=== PATIENT | female | born 1950 | race Caucasian/White ===

== ENCOUNTER → 2018-03-14 09:59 | Outpatient (CLI) | payer MEDICARE, SELFPAY ==
--- NOTE | 2018-03-14 10:06 | CDU_ITS ---
Reason For Study: dizziness and giddiness Rt. Velocities/BP Lt. Velocities/BP Prox CCA 66.8/25.5 cm/sec. Prox CCA 73.9/27.6 cm/sec. Mid CCA 61.7/24.0 cm/sec. Mid CCA 69.2/24.0 cm/sec. Dist CCA 67.6/26.7 cm/sec. Dist CCA 72.7/29.9 cm/sec. Prox ICA 69.5/29.5 cm/sec. Prox ICA 47.9/13.4 cm/sec. Mid ICA 85.0/39.9 cm/sec. Mid ICA 77.4/33.4 cm/sec. Dist ICA 78.3/35.4 cm/sec. Dist ICA 117.0/41.0 cm/sec. Rt. ICA/CCA = 85.0/61.7=1.3. Lt. ICA/CCA = 117.0/69.2=1.7. Prox ECA 54.2/14.5 cm/sec. Prox ECA 83.3/18.2 cm/sec. Rt. Vert. 41.2/12.2 cm/sec. Lt. Vert. 41.4/13.6 cm/sec. Right Extracranial There is intimal thickening but no significant atherosclerotic plaque noted in the right common carotid artery. There is intimal thickening but no significant atherosclerotic plaque noted in the right internal carotid artery. The right internal carotid artery is very tortuous. There is intimal thickening but no significant atherosclerotic plaque noted in the right external carotid artery. Left Extracranial There is intimal thickening but no significant atherosclerotic plaque noted in the left common carotid artery. There is intimal thickening but no significant atherosclerotic plaque noted in the left internal carotid artery. The tortuous nature of the left internal carotid artery may result in flow velocities overestimating the degree of stenosis. There is no significant atherosclerotic plaque noted in the left external carotid artery. Antegrade flow is noted in the left vertebral artery. Interpretation Summary No significant atherosclerotic plaque or stenosis noted in the internal carotid arteries bilaterally. Flow within the vertebral arteries is antegrade bilaterally. Ordering Physician: JOSSELIN GUARDADO Referring Physician: JOSSELIN GUARDADO FREE Performed By: Silvia Johnson, ZEN, RVT
== END ==
DX: R42 Dizziness and giddiness (principal)
CPT/HCPCS: 93880

== ENCOUNTER → 2018-03-21 18:11 | Outpatient (CLI) | payer MEDICARE, SELFPAY ==
--- NOTE | 2018-03-21 18:22 | CT_ITS ---
STUDY: LOW DOSE CT LUNG CANCER SCREENING REASON FOR EXAM: Female, 67 years old. Lung cancer screening. Smoker one half pack per day. RADIATION DOSAGE (If Supplied By Facility): CTDIvol = ( 2.01 ) mGy, DLP = ( 69.72 ) mGycm TECHNIQUE: No contrast was administered. Low dose technique was utilized (average mAS-38 and kVp 120). 1.25 mm axial source images with a slice interval of 1.25-mm were reconstructed in lung windows. Nodule measured using lung windows on PACS and/or independent workstation with automated measurement of minimum and maximum diameter. Nodule measurement reported as average diameter rounded to the nearest whole number. Growth is defined as an increase ins size of greater than 1.5 mm. COMPARISON: None. FINDINGS: Total lung nodules (excluding granulomas): A few scattered tiny subpleural noncalcified pulmonary nodules are present measuring less than 2 mm. This also likely represents sequela from old granulomatous disease but without calcification. There are no suspicious pulmonary nodules requiring follow-up. Small calcified pulmonary nodules are present consistent with old granulomatous disease. Emphysema: Centrilobular emphysema. Endobronchial lesion: None. Aorta: Nonaneurysmal ectasia of the ascending aorta and proximal arch 3.5 cm. Coronary arteries: Mild coronary calcifications are visible in the proximal LAD, none seen in the RCA (right dominant) or circumflex or left main. Heart: Unremarkable. Pulmonary artery: Nondilated. Mediastinal nodes: None. Other chest and abdominal findings: Supraclavicular and body wall soft tissues, and upper abdomen exhibit no acute process. There are calcified gallstones within contracted gallbladder without acute inflammatory features or biliary ductal dilatation. There is no mediastinal mass or lymphadenopathy. The esophagus appears normal. There is no acute osseous process. CT/Low Dose CT Lung Screening IMPRESSION: There is evidence of old granulomatous disease with a few tiny calcified pulmonary nodules. There are a few tiny subtle scattered noncalcified pulmonary nodules, less than 2 mm, not specifically requiring follow-up. Based on the ACR lung RADS classification, recommendation to continue annual low dose screening CT. Mild coronary atherosclerosis. No other acute cardiopulmonary process. IMPORTANT NOTES FOR USE: ACR Lung-RADS Version 1.0 Assessment Categories Release Date: January 08, 2014 Category: Coded 0-4 bases on nodule(s) with highest degree of suspicion. Negative screen is defined as categories 1 and 2; a positive screen is defined as categories 3 and 4. Category 3 and 4A nodules that are unchanged on interval CT should be coded as category 2, and individuals returned to screening in 12 months. Category 4X: Category 3 or 4 nodules with additional imaging findings that increase the suspicion of lung cancer, such as spiculation, GGN that doubles in size in 1 year, enlarged lymph notes, etc. Category Modifiers: S (significant finding unrelated to lung cancer) and C (prior history of treated lung cancer) may be added to the 0-4 Lung-RADS Electronically Signed: Julien Houston, at 9:19 EDT Tel , Service support ,
== END ==
DX: Z12.2 Encounter for screening for malignant neoplasm of respiratory organs (principal); R05 Cough; Z87.891 Personal history of nicotine dependence
CPT/HCPCS: G0297

== ENCOUNTER 2018-04-19 06:58 | Day surgery (SDC) | payer MEDICARE, SELFPAY ==
[2018-04-19] VITALS (7 sets, daily range): BP systolic 105–120; BP diastolic 58–67; PULSE 80–92; RESP 12–16; TEMP 36.4–37.2; O2SAT 100; BMI 18.0
--- NOTE | 2018-04-19 08:20 | PCM.OPRPT ---
Problem List (1) Screen for colon cancer Status: Acute Report of Operation Date of Procedure: 04/19/18 Pre-Operative Diagnosis: Screening colonoscopy Post-Operative Diagnosis: Normal colonoscopy Surgery/Procedure Performed:: Colonoscopy Description of Procedure: The major risks and benefits associated with the procedure were explained to the patient in detail. The patient verbalized understanding and agreement with the same. The patient was brought to the endoscopy suite. After adequate sedation was achieved, the patient was placed in the left lateral decubitus position and a digital rectal exam was performed. This examination was within normal limits. A well-lubricated colonoscope was then inserted into the rectum and advanced under direct visualization to the level of the cecum. The bowel prep was good. The cecum was identified by both visual and anatomic landmarks. A photograph was taken of the end of the cecum. The scope was then fully withdrawn while examining the color, texture, anatomy and integrity of the mucosa from the cecum to the anal canal. The findings were consistent with normal colonic mucosa. Over 6 minutes were taken to examine the colonic mucosa. Upon reaching the rectum the scope was retroflexed to examine the distal rectal vault. The scope was then straightened and was completely retrieved upon exiting the anal canal and the procedure was terminated. The patient was then transferred to the recovery room in stable condition. Recommendations for follow up: 10 years
--- NOTE | 2018-04-19 08:21 | H&P.OPEN ---
Past Medical/Surgical History - Planned Operation Planned Operative Procedure/s: COLONOSCOPY Date of Operative Procedure: 04/19/18 Permit Signed: No S.O.S: No Is This Patient Having a Total Joint: No - Previous Hospitalizations/Surgeries HX of Surgeries: INTESTINAL SURGERY AT AGE 14. CATARACT BILAT 2018 Any Problems With Anesthesia: No You/Your Family Experience Fever (Hyperthermia) With Anes: No Cholinesterase deficiency: No - Cardiovascular Hx Chest Pain within Last 2 months: No Hx of Irregular Heartbeat and/or Afib: No Hx Heart Attack: No Hx Congestive Heart Failure: No Hx Rheumatic Fever: No Hx Hypertension: No Hx Internal Defibrillator: No Hx Pacemaker: No Hx Cardiac Catheterization: No Hx Cardiac Surgery/Stents/Etc.: No Hx Stress Test: Yes - [place] 2014, STATES NEG HX Edema: No - Respiratory Chronic Cough: No HX of Shortness of Breath: Yes - SOB WITH 2 FLIGHTS STAIRS Hoarseness: No Hx Chronic Obstructive Pulmonary Disease (COPD): No Hx Asthma: No Hx Emphysema: No Hx Sleep Apnea: No Hx Oxygen Use at Home: No Hx Respiratory Tract Infection/Cold (presently): No Do You Snore Loudly (louder than talking or can be heard): No Do You Often Feel Tired/ Fatigued/ Sleepy Dring Daytime?: Yes Has Anyone Observed You Stop Breathing During Sleep?: No Result (for STOP score): Negative Hx Smoking: Yes - 1/2 PPD X 35+ Smoking Status: Current every day smoker - Gastrointestinal Hx Gastroesophageal Reflux: No Hx Gastrointestinal Disorders: No Hx Gastrointestinal Bleed: No Hx Ulcer: No Hx Hiatal Hernia: No Difficulty Chewing/Swallowing: No Recent Onset of Swallowing Problems: No Special diet followed at home: No Hx Unplanned Weight Loss of 20#: No HX Unplanned Weight Gain of 20#: No - Neurological Hx Seizures: Yes - PER HX TEEN HX Syncope/Blackout Spells/Unconsciousness: Yes - PER HX, DUE TO MED , SAW DR Hx CVA/Stroke: No Hx Transient Ischemic Attacks (TIA): No Hx Multiple Sclerosis: No Hx Parkinson's Disease: No Hx Head/Neck Injury: Yes - HEAD INJURY , CHILD Hx Headaches: Yes - MIGRAINES PER HX Hx Back Injury/Pain: Yes - LOW BACK PAIN OCCAS Recent Onset of Speech Difficulty: No Restless Legs: No Does patient have nerve stimulator: No Patient instructed to have device shut off: No Rep notified?: No - Blood Disorder Hx Leukemia: No Bleeding Tendencies: Yes - BRUISE EASILY Hx Deep Vein Thrombosis: No Hx High Cholesterol: Yes - NO MEDS Blood Transmitted Disease: No Hx Hepatitis: No Hx Cirrhosis: No Hx Anemia: No Hx Blood Disorders: No - Reproduction : No Is Patient Lactating: No Hx Hysterectomy: No Hx Tubal Ligation: No Are You Post Menopause: Yes - Genitourinary Hx Renal Disease: No - Musculoskeletal Hx Arthritis: No Hx Rheumatoid Arthritis: No Hx Gout: No Recent Onset of an Orthopedic Problem: No - Endocrine Hx Diabetes: No Thyroid Disease: No Hx Steroid Therapy: No - Psycho/Social Hx Substance Use: No Hx Alcohol Use: No Hx Anxiety: No Hx Depression: No Mental Illness: No Hx Dementia: No - Miscellaneous Hx Cancer: No Recent Exposure to Contagious Disease: No Active MRSA: No Hx of C-Diff: No Any Loose Teeth: Yes - NO TEETH Allergies No Known Allergies Allergy (Verified 04/18/18 08:34) - Discharge Is Pt Admitted From a Long Term, or a Retirement: No Who Could Help: SON After D/C, Where Do you Plan to Go: Return Home Patient Problems: Active and Suspected Problems Screen for colon cancer (Acute) - Physical Exam General: Alert, Oriented x3, Cooperative Neck: No JVD Lungs: Normal air movement Cardiovascular: Regular rate, Regular Rhythm Abdomen: Soft, Non Tender, Non-Distended Vital Signs Temp Pulse Resp BP Pulse Ox 98 F 92 16 119/58 L 100 04/19/18 07:21 04/19/18 07:21 04/19/18 07:21 04/19/18 07:21 04/19/18 07:21 Oxygen Delivery Method Room Air Weight: 108 lb 3.951 oz Body Mass Index (BMI) 18.0 Assessment/Plan All Active Problems Screen for colon cancer (Acute) 67-year-old for screening colonoscopy 1. Patient has never had a colonoscopy before. She has no family history of colon cancer. She describes no abdominal pain or blood in her stool. 2. I explained endoscopy in detail to the patient. I explained the risks including but not limited to stroke or heart attack with anesthesia, perforation of the GI tract, bleeding, infection. I explained that any of these could necessitate further emergency surgery. The patient understands and all questions were answered sufficiently. The patient wishes to proceed with procedure. Timmy Gale MD Pager: [facility] [address] [place] [address] [address] [place] [address] Office: Surgery Risks - Colonoscopy Risks Include but are not Limited To: Risks include but are not limited to: Bleeding, perforation requiring further surgery, inability to complete colonoscopy requiring barium enema.
== END 2018-04-19 09:00 | disposition home or self-care (01) ==
LOC: EN 06:59 → AC 07:00
PROVIDERS: Visit Provider Surgery
PROC: 0DJD8ZZ Inspection of Lower Intestinal Tract, Via Natural or Artificial Opening Endoscopic (ICD-10-PCS; CPT 45378; principal; 2018-04-19 07:55)
DX: Z12.11 Encounter for screening for malignant neoplasm of colon (principal); E78.00 Pure hypercholesterolemia, unspecified; R56.9 Unspecified convulsions; G43.909 Migraine, unspecified, not intractable, without status migrainosus; F17.200 Nicotine dependence, unspecified, uncomplicated; Z78.0 Asymptomatic menopausal state; Z79.899 Other long term (current) drug therapy
CPT/HCPCS: G0121; J7120

== ENCOUNTER → 2018-06-22 10:29 | Outpatient (CLI) | payer MEDICARE, MEDICAID, SELFPAY ==
--- NOTE | 2018-06-22 10:41 | BD_ITS ---
STUDY: DUAL ENERGY X-RAY ABSORPTIOMETRY / DXA REASON FOR EXAM: Female, 67 years old. The patient is postmenopausal. Loss of height. TECHNIQUE: Bone Mineral Density (BMD) measurements of lumbar spine and bilateral hips were obtained. COMPARISON: None. FINDINGS: Lumbar Spine (L1-L4): g/cm2 (0.940) / T-score (-1.9) / Z-score (-0.3) Findings are suggestive of osteopenia with a moderate fracture risk. Left Femur Total: g/cm2 (0.709) / T-score (-2.4) / Z-score (-1.1) Left Femoral Neck: g/cm2 (0.685) / T-score (-2.5) / Z-score (-1.0) Right Femur Total: g/cm2 (0.682) / T-score (-2.6) / Z-score (-1.4) Right Femoral Neck: g/cm2 (0.614) / T-score (-3.1) / Z-score (-1.6) BD/Dexa Bone Density Study IMPRESSION: The patient is considered osteoporotic as outlined below according to World Haile Organization (WHO) criteria with a high fracture risk. Reference Information: The T-score is the number of standard deviations above or below the standard which is normal for young adults at their peak bone mineral density. The World Health Organization (WHO) interprets the T-scores as follows: Above -1 Normal bone density Between -1 and -2.5 Osteopenia Equal to / or below -2.5 Osteoporosis As a practical clinical guideline, osteopenia may be graded as follows: Mild -1 through -1.5 Moderate -1.6 through -2.0 Severe -2.1 through -2.4 The Z-score is the number of standard deviations above or below age-matched controls. A Z-score of less than -1.5 would be considered abnormal. References: 1. NIH Osteoporosis and Related Bone Diseases http://www.osteo.org 2. International Society for Clinical Densitometry http://www.iscd.org 3. National Osteoporosis Foundation http://www.nof.org Electronically Signed: Osmany Lemos MD at 15:52 EDT Tel [phone], Service support ,
--- NOTE | 2018-06-22 10:43 | BI_ITS ---
MAMMOGRAPHY - BILATERAL SCREENING 3-D BETHANY SYNTHESIS REASON FOR EXAM: Female, 67 years old. Bilateral Screening 3-D tomosynthesis PERTINENT HISTORY: Asymptomatic. No significant family history. TECHNIQUE: 2-D mammograms and 3-D Bethany synthesis of the breast (s) were performed. CAD was performed. COMPARISON: None available. If prior mammogram becomes available, then they can be placed after comparison. FINDINGS: The breast composition is almost entirely fat. Numerous tiny variable size calcifications are seen in the left axilla with MLO view (electronically circled) only for which left true lateral, left XCC and if applicable XCC/MLO spot magnification views are recommended to exclude neoplasm with documentation of possible skin calcifications or possible deodorant. Right breast upper inner quadrant tiny round mass density is seen anterior to middle third junction, approximate 0.46 cm diameter (electronically circled) for which CC/MLO spot compression views are recommended. No dominant spiculated masses, architectural distortion, adenopathy, skin thickening or nipple retraction identified. IMPRESSION: Incomplete mammogram, additional imaging recommended as described (bilateral). ASSESSMENT CATEGORY: BIRADS Category 0: Incomplete. Need additional imaging evaluation as above. A letter regarding these results will be sent to the patient by the facility within 30 days. FOLLOW UP RECOMMENDATION: Additional imaging recommended as above. (E) Negative mammographic results should not deter biopsy as any palpable lesion if present should be followed based on clinical grounds and biopsy performed if clinically persistent for 3 months or increasing size. Approximately 10% of breast cancers are not detected by mammography. A normal mammogram should not delay biopsy of a clinically suspicious abnormality. Dense breast tissue may obscure neoplasm. Electronically Signed: Abdi Shelton, at 20:17 EDT Tel , Service support , BI/SCREENING MAMM (CAD)MAAME
== END ==
DX: Z12.31 Encounter for screening mammogram for malignant neoplasm of breast (principal); Z78.0 Asymptomatic menopausal state; M81.0 Age-related osteoporosis without current pathological fracture; Z87.311 Personal history of (healed) other pathological fracture
CPT/HCPCS: 77063; 77067; 77080

== ENCOUNTER → 2018-07-27 13:41 | Outpatient (CLI) | payer MEDICARE, MEDICAID, SELFPAY ==
--- NOTE | 2018-07-27 13:49 | BI_ITS ---
MAMMOGRAPHY - BILATERAL DIAGNOSTIC REASON FOR EXAM: Female, 67 years old. Abnormal screening mammogram. PERTINENT HISTORY: Non-contributory. TECHNIQUE: 90 degree lateral view of the left breast as well as compression spot views of the right breast in the craniocaudad and MLO projections were obtained. CAD: Full Field Digital Mammography with Computer Added Detection was performed. COMPARISON: Comparison is made with prior study dated June 22, 2018. FINDINGS: Breast Composition: The breasts are almost entirely fatty. There are no dominant masses or suspicious calcifications. The previously seen fine calcifications in the left axillary region is not seen at this time and most likely represented the origin. There is evidence of a 2 mm nodular density in the central portion of the right breast. This most like represents a tiny cyst. No other significant abnormalities are identified. BI/DIAG MAMM W/CAD, BILAT IMPRESSION: Stable bilateral diagnostic mammogram. One year follow-up recommended. (A) ASSESSMENT CATEGORY: BIRADS Category 2: Benign. A letter regarding these results will be sent to the patient by the facility within 30 days. Approximately 10% of breast cancers are not detected by mammography. A normal mammogram should not delay biopsy of a clinically suspicious abnormality. Electronically Signed: Osmany Lemos MD at 14:57 EST Tel [phone], Service support ,
== END ==
DX: R92.2 Inconclusive mammogram (principal)
CPT/HCPCS: 77066

== ENCOUNTER → 2021-05-07 09:43 | Outpatient (CLI) | payer MEDICARE, SELFPAY ==
--- NOTE | 2021-05-07 10:25 | BD_ITS ---
STUDY: DUAL ENERGY X-RAY ABSORPTIOMETRY / DXA REASON FOR EXAM: Female, 70 years old. 733.00OsteoporosisBONE DENSITY REASON FOR EXAM TECHNIQUE: Bone Mineral Density (BMD) measurements of lumbar spine and bilateral hips were obtained. COMPARISON: Comparison is made with prior study dated 06/22/2018 FINDINGS: Lumbar Spine (L1-L4): g/cm2 (0.933) / T-score (-0.8) / Z-score (1.2) Findings are suggestive of normal bone density with a low fracture risk. Left Femur Total: g/cm2 (0.729) / T-score (-1.7) / Z-score (0.3) Left Femoral Neck: g/cm2 (0.613) / T-score (-2.1) / Z-score (-0.4) Right Femur Total: g/cm2 (0.717) / T-score (-1.8) / Z-score (-0.4) Right Femoral Neck: g/cm2 (0.57) / T-score (-2.5) / Z-score (-0.8) The T-Scores on the most recent prior examination were: Lumbar Spine (L1-L4): There has been worsening of bone density since the previous examination. Left Femur Total: which represents an improvement of 12%. Right Femur Total: which represents an improvement of 14.7%. BD/Dexa Bone Density Study IMPRESSION: The patient is considered osteoporotic as outlined below according to World Haile Organization (WHO) criteria with a high fracture risk. There has been improvement of bone density since the previous examination. Reference Information: The T-score is the number of standard deviations above or below the standard which is normal for young adults at their peak bone mineral density. The World Health Organization (WHO) interprets the T-scores as follows: Above -1 Normal bone density Between -1 and -2.5 Osteopenia Equal to / or below -2.5 Osteoporosis As a practical clinical guideline, osteopenia may be graded as follows: Mild -1 through -1.5 Moderate -1.6 through -2.0 Severe -2.1 through -2.4 The Z-score is the number of standard deviations above or below age-matched controls. A Z-score of less than -1.5 would be considered abnormal. References: 1. NIH Osteoporosis and Related Bone Diseases www osteo.org 2. International Society for Clinical Densitometry www iscd.org 3. National Osteoporosis Foundation www nof.org Electronically Signed: Osmany Lemos MD at 12:12 EDT , Service support ,
== END ==
PROVIDERS: Referring Provider Nurse Practitioner Adult Health; Visit Provider Nurse Practitioner Adult Health
DX: M81.0 Age-related osteoporosis without current pathological fracture (principal)
CPT/HCPCS: 77080

== ENCOUNTER → 2021-07-09 11:12 | Outpatient (CLI) | payer MEDICARE, SELFPAY ==
--- NOTE | 2021-07-09 11:16 | EKG12_ITS ---
Test Reason : CP Blood Pressure : / mmHG Vent. Rate : 088 BPM Atrial Rate : 088 BPM P-R Int : 160 ms QRS Dur : 072 ms QT Int : 370 ms P-R-T Axes : 046 -23 057 degrees QTc Int : 447 ms Normal sinus rhythm Nonspecific T wave abnormality Abnormal ECG Confirmed by TIM LAUGHLIN, SHYANN ([id number]), newspaper copy editor SOL ESCALANTE ([id number]) on 07/10/2021 9:34:59 AM Referred By: Zainab Sarah Confirmed By:SHYANN DUMONT MD
== END ==
PROVIDERS: Referring Provider Nurse Practitioner Adult Health; Visit Provider Nurse Practitioner Adult Health
DX: R07.9 Chest pain, unspecified (principal)
CPT/HCPCS: 93005

== ENCOUNTER → 2021-07-22 14:11 | Outpatient (CLI) | payer MEDICARE, SELFPAY ==
[2021-07-22 14:39] LABS: Absolute Lymphocyte Count 2.75 X10^3/uL (0.83-4.51); Absolute Neutrophil Count 4.7 X10^3/uL (2.0-7.7); Basophil# 0.06 X10^3/uL; Basophil% 0.7 % (0-1); Eosinophil# 0.43 X10^3/uL; Eosinophils% 4.9 % (0-5); Hematocrit 41.9 % (37-47); Hemoglobin 13.7 g/dL (12.0-15.0); Lymphocyte # 2.75 X10^3/ul (0.83-4.51); Lymphocyte % 31.4 % (19-41); Mean Corp Hgb Conc 32.7 g/dL (32-36); Mean Corpuscular Hgb 29.8 pg (27.0-32.0); Mean Corpuscular Volume 91.1 fL (81-99); Mean Platelet Vol. 9.1 fl (6.2-12.0); Monocyte# 0.78 X10^3/uL; Monocyte% 8.9 % (0-10); NRBC Flagged by Analyzer 0 % (0-5); Neutrophil # 4.73 X10^3/uL (2.7-7.7); Neutrophil % 53.9 % (47-70); Platelet Count 322 K/mm3 (150-450); RBC Distribution Width CV 12.6 % (11.6-14.6); RBC Distribution Width SD 41.9 fl (35.1-43.9); White Blood Count 8.8 K/mm3 (4.4-11.0)
[2021-07-22 14:54] LABS: D-Dimer Quantitative (DVT/PE) 0.65 FEU/ug/m (0.27-0.49)
[2021-07-22 15:07] LABS: ALB/GLOB Ratio 0.9 RATIO (0.9-2.4); AST(SGOT) 21 U/L (15-37); Alanine Aminotransfer ALT/SGPT 28 U/L (13-56); Albumin, Serum 3.7 g/dL (3.2-5.0); Alkaline Phosphatase 82 U/L (45-117); Anion Gap 6 (5-15); BUN 20 mg/dL (7-18); BUN/Creat Ratio 16.9 RATIO (10-20); Calcium,Total 9.2 mg/dL (8.5-10.1); Chloride 106 mmol/L (98-107); Cholesterol 197 mg/dL (200); Creatinine, Serum 1.18 mg/dL (0.55-1.02); EST Glomerular Filtration Rate 48 mL/min (>60); Est Glom Filt Rate - Afr Amer 58 mL/min (>60); Globulin 4.2 g/dL (2.2-4.2); Glucose 100 mg/dL (74-106); High Density Lipoprotein 78 mg/dL; Potassium 4.3 mmol/L (3.5-5.1); Protein, Total 7.9 g/dL (6.4-8.2); Sodium Level 139 mmol/L (136-145); Thyroid Stim Hormone (TSH) 1.82 uIU/mL (0.358-3.74); Triglycerides 138 mg/dL; Very Low Density Lipoprotein 28 mg/dL (5-40)
== END ==
PROVIDERS: Referring Provider Nurse Practitioner Adult Health; Visit Provider Nurse Practitioner Adult Health
DX: R07.9 Chest pain, unspecified (principal); R53.83 Other fatigue
CPT/HCPCS: 36415; 80053; 80061; 84443; 85025; 85379

== ENCOUNTER 2021-07-30 11:43 | Emergency (ER) | payer MEDICARE, SELFPAY ==
[2021-07-30 11:43] VITALS: BP 132/67; PULSE 101; RESP 18; TEMP 36.2; O2SAT 98; BMI 22.3
--- NOTE | 2021-07-30 12:12 | EKG12_ITS ---
Test Reason : SYNCOPE Blood Pressure : / mmHG Vent. Rate : 091 BPM Atrial Rate : 091 BPM P-R Int : 154 ms QRS Dur : 076 ms QT Int : 358 ms P-R-T Axes : 053 -28 066 degrees QTc Int : 440 ms Normal sinus rhythm Normal ECG When compared with ECG of 09-JUL-2021 11:16, Nonspecific T wave abnormality no longer evident in Inferior leads Confirmed by NICK LAUGHLIN, JAYLAN ([id number]), editor publications SOL ESCALANTE ([id number]) on 08/05/2021 1:59:43 PM Referred By: TITO/MATT Confirmed By:JAYLAN ROMERO MD
--- NOTE | 2021-07-30 13:40 | RAD_ITS ---
STUDY: X-RAY CHEST REASON FOR EXAM: Female, 70 years old. Weakness. Syncopal episode. TECHNIQUE: Single AP portable view of the chest. COMPARISON: None. FINDINGS: Mild increased markings in the right infrahilar region suggestive of atelectasis. There is no demonstrated pleural abnormality. Normal size heart. Normal mediastinum and akbar. Normal visualized pulmonary arteries. Normal visualized aortic arch and descending thoracic aorta. Normal visualized thoracic spine. There is degenerative osteoarthritis of the bilateral shoulders. There is no demonstrated abnormality of the visualized soft tissue structures of the upper abdomen. RAD/Chest 1 View (Portable) IMPRESSION: Mild increased markings in the right infrahilar region suggestive of atelectasis. Electronically Signed: Osmany Lemos MD at 14:11 EST , Service support ,
[2021-07-30 13:48] VITALS: BP 120/66; PULSE 90; RESP 14; O2SAT 96
[2021-07-30 13:49] VITALS: O2SAT 96
[2021-07-30 14:05] LABS: Absolute Lymphocyte Count 1.08 X10^3/uL (0.83-4.51); Absolute Neutrophil Count 2.2 X10^3/uL (2.0-7.7); Basophil# 0.02 X10^3/uL; Basophil% 0.5 % (0-1); Eosinophil# 0.12 X10^3/uL; Eosinophils% 3.1 % (0-5); Hematocrit 42.9 % (37-47); Hemoglobin 13.8 g/dL (12.0-15.0); Lymphocyte # 1.08 X10^3/ul (0.83-4.51); Lymphocyte % 27.6 % (19-41); Mean Corp Hgb Conc 32.2 g/dL (32-36); Mean Corpuscular Hgb 29.4 pg (27.0-32.0); Mean Corpuscular Volume 91.5 fL (81-99); Mean Platelet Vol. 10.8 fl (6.2-12.0); Monocyte# 0.49 X10^3/uL; Monocyte% 12.5 % (0-10); NRBC Flagged by Analyzer 0 % (0-5); POSITIVE COUNT YES; Platelet Count 221 K/mm3 (150-450); RBC Distribution Width CV 12.8 % (11.6-14.6); RBC Distribution Width SD 43.2 fl (35.1-43.9); Red Blood Count 4.69 M/mm3 (4.2-5.4); White Blood Count 3.9 K/mm3 (4.4-11.0)
[2021-07-30 14:11] VITALS: BP 112/72; PULSE 92; RESP 12; O2SAT 95
[2021-07-30 14:13] LABS: Differential Indicated SCAN CRITERIA MET
[2021-07-30 14:20] LABS: ALB/GLOB Ratio 0.9 RATIO (0.9-2.4); AST(SGOT) 46 U/L (15-37); Alanine Aminotransfer ALT/SGPT 48 U/L (13-56); Albumin, Serum 3.5 g/dL (3.2-5.0); Alkaline Phosphatase 82 U/L (45-117); Anion Gap 6 (5-15); BUN 14 mg/dL (7-18); BUN/Creat Ratio 12.3 RATIO (10-20); Calcium,Total 8.9 mg/dL (8.5-10.1); Chloride 107 mmol/L (98-107); Creatinine, Serum 1.14 mg/dL (0.55-1.02); EST Glomerular Filtration Rate 50 mL/min (>60); Est Glom Filt Rate - Afr Amer 61 mL/min (>60); Estimated Creatinine Clearance 40.79 ml/min; Globulin 4.1 g/dL (2.2-4.2); Glucose 109 mg/dL (74-106); Lipase 258 U/L (73-393); Potassium 4.2 mmol/L (3.5-5.1); Protein, Total 7.6 g/dL (6.4-8.2); Sodium Level 139 mmol/L (136-145); Troponin-I HS 6 pg/mL (3.0-54.0)
[2021-07-30 14:59] LABS: Mucous, Urine 0 SEEN /hpf (<or=2+)
[2021-07-30 15:07] LABS: Platelet Estimate ADEQUATE (ADEQ); Red Cell Morphology NORM C+C NORMAL (NORM C&C)
--- NOTE | 2021-07-30 15:14 | EDS_ITS ---
HPI History of Present Illness Chief Complaint: Syncope Informant: patient and family Narrative Narrative: Patient is a 62-year-old female with history of osteopenia, hyperlipidemia, migraine headaches, tobacco use and syncope presenting after syncopal episode. Patient notes over the past week she has not been feeling well. She is been feeling weak and having discomfort in her chest. She has had nasal congestion and sore throat. She had decreased appetite. She had fever range between 98 to 101 ?F. Denies any sick contacts. Has not had a Covid vaccine. Today when she was getting up from using the toilet she had a syncopal episode. Son found her and states that she was out for a minute or 2. He then brought her to the emergency room for further evaluation. Patient states for the past 2 days has had pain under her breast. No other complaints at this time. PFSH PFS Medical History GERD (gastroesophageal reflux disease) Hyperlipidemia Home Medications amitriptyline 25 mg PO QHS 04/18/18 [History Last Taken Unknown] ondansetron HCl [Zofran] 4 mg PO Q8H PRN #14 tab 07/30/21 [Rx Last Taken Unknown] Allergy/AdvReac Type Severity Reaction Status Date / Time No Known Allergies Allergy Verified 07/30/21 11:45 Social History Smoking Status: Current every day smoker tobacco type: cigarettes ROS ROS ED Constitutional Constitutional ED: Reports chills and fever(s) Eyes Eyes: Denies change in vision ENT ENT ED: Reports rhinorrhea and sore throat; Denies ear pain Cardiovascular Cardiovascular: Reports chest pain; Denies palpitations Respiratory/Chest Respiratory/Chest: Reports cough and dyspnea on exertion Gastrointestinal Gastrointestinal: Denies abdominal pain, diarrhea, nausea or vomiting Genitourinary Genitourinary ED: Denies dysuria or hematuria Musculoskeletal Musculoskeletal: Denies arthralgias or myalgias Integumentary Denies rash Neurologic Neurologic: Reports weakness; Denies headache(s) Psychiatric Psychiatric: Denies depression EXAM Physical Exam Const Vital Signs: 07/30/21 11:43 07/30/21 13:48 07/30/21 13:49 Temperature 97.1 F L Temperature Source Temporal Pulse Rate 101 H 90 Respiratory Rate 18 14 Respiratory Effort Respiratory Pattern Blood Pressure 132/67 H 120/66 Blood Pressure Mean 88 84 Pulse Ox 98 96 96 Oxygen Delivery Method Room Air Room Air Nasal Cannula 07/30/21 13:53 07/30/21 14:11 07/30/21 15:45 Temperature Temperature Source Pulse Rate 92 81 Respiratory Rate 12 16 Respiratory Effort Normal Non-Labored Respiratory Pattern Normal Blood Pressure 112/72 115/65 Blood Pressure Mean 85 Pulse Ox 95 94 Oxygen Delivery Method Positive well nourished and well developed General Appearance ED: well developed HEENT Reports TM's clear and moist mucous membranes Negative for trauma Tympanic Membrane ED: Yes TM's clear Eyes PERRL and EOMs intact bilaterally Neck supple and no JVD General: Negative for tenderness Chest Wall inspection of chest normal and palpation of chest normal Resp normal respiratory effort Auscultation: diminished lung sounds bilateral lower Cardio regular rate, regular rhythm and no murmurs GI normal to inspection, nondistended, normoactive bowel sounds Back/Spine no CVA tenderness Extremity normal to inspection General Extremety ED: Negative for edema or tenderness General Extremity: Negative for edema Neuro oriented x3 and CN's II-XII intact bilaterally Sensorium / Orientation: alert Motor Exam: Negative for general weakness Psych mental status grossly normal Skin no rashes or lesions noted and no wounds MDM MDM MDM Narrative Medical decision making narrative: Patient evaluated for 1 week of decreased appetite, fever, generalized malaise and now syncopal episode. Patient appears nontoxic in no acute distress. She is given a bolus of IV fluids as she states she has been eating and drinking less. Work-up is remarkable for positive Covid test. She also has a mild leukopenia. She is not hypoxic and ambulates without any hypoxia. Patient had a normal age-adjusted D-dimer 2 weeks ago so I do not think a repeat is indicated at this time. Her creatinine is at her baseline. She does not have any significant electrolyte abnormalities. Urinalysis shows rare bacteria but 500 with esterase. This could be inflammatory secondary to viral syndrome however urine culture sent. I do not think her syncope was cardiogenic in nature and I suspect it is more vasovagal and associated with her current illness. Patient will be referred for monoclonal antibody. At this time I do not think she requires admission or steroids. She is given a prescription for Zofran. She is counseled on strict return precautions. She verbalizes agreement understand this plan. Lab Data Labs: Laboratory Results - last 24 hr 07/30/21 07/30/21 07/30/21 13:40 13:40 14:55 WBC 3.9 L RBC 4.69 Hgb 13.8 Hct 42.9 MCV 91.5 MCH 29.4 MCHC 32.2 RDW Std Deviation 43.2 RDW Coeff of Ryan 12.8 Plt Count 221 MPV 10.8 Immature Gran % (Auto) 0.300 Neut % (Auto) 56.0 Lymph % (Auto) 27.6 [place] % (Auto) 12.5 H Eos % (Auto) 3.1 Baso % (Auto) 0.5 Absolute Neuts (auto) 2.2 Absolute Lymphs (auto) 1.08 Nucleated RBC % 0 Platelet Estimate ADEQUATE RBC Morphology NORM C+C Sodium 139 Potassium 4.2 Chloride 107 Carbon Dioxide 26.0 Anion Gap 6 BUN 14 Creatinine 1.14 H Estim Creat Clear Calc 40.79 Est GFR (MDRD) Af Amer 61 Est GFR (MDRD) Non-Af 50 L BUN/Creatinine Ratio 12.3 Glucose 109 H Calcium 8.9 Total Bilirubin 0.30 AST 46 H ALT 48 Alkaline Phosphatase 82 Troponin I High Sens 6 Total Protein 7.6 Albumin 3.5 Globulin 4.1 Albumin/Globulin Ratio 0.9 Lipase 258 Urine Color Yellow Urine Clarity Sl. Cloudy Urine pH 6.5 Ur Specific [place] 1.010 Urine Protein 15 H Urine Glucose (UA) Normal Urine Ketones Negative Urine Occult Blood Negative Urine Nitrite Negative Urine Bilirubin Negative Urine Urobilinogen Normal Ur Leukocyte Esterase 500 H Urine RBC 0-5 SEEN Urine WBC 10-25 SEEN Ur Squamous Epith Cells 0-5 SEEN Ur Transition Epith Cell 0-5 SEEN Ur Renal Epithelial Cell 0-5 SEEN Urine Bacteria RARE Hyaline Casts 0-5 SEEN Urine Mucus 0 SEEN Radiography Diagnostic Testing: Clinical Impression(s) from Imaging Studies Chest X-Ray 07/30/21 13:40 IMPRESSION: Mild increased markings in the right infrahilar region suggestive of atelectasis. Electronically Signed: Osmany Lemos MD at 14:11 EST , Service support , Rhythm Strip Rhythm Strip: Sinus Rhythm Rate: 91 Ectopy: None EKG Initial EKG: Attestation: I personally reviewed and interpreted this EKG as follows: Interpretation: Sinus Rhythm Comments: Normal sinus rhythm and rate Discharge Plan Triage Chief Complaint: Syncope ED Provider: Brittany Contreras Dx/Rx/DC Orders Clinical Impression: Syncope and collapse, COVID-19 virus infection Instructions: Coronavirus Disease 2019 (COVID-19): Caring for Yourself or Others, ED Dizziness or Syncope ... Prescriptions: New ondansetron HCl [Zofran] 4 mg tablet 4 mg PO Q8H PRN (Reason: nausea and vomiting) Qty: 14 RF: 0 No Action amitriptyline 25 MG tablet 25 mg PO QHS RF: 0 Other Ambulatory Orders: COVID Outpatient Monoclonal Antibody Referral (Routine) Timeframe: 1 Day Facility: [facility] - Location: [facility] Ordered By: Dr. Brittany Contreras Primary Care Provider: Ying Berg Referrals: [facility],Ying Tripp [Primary Care Provider] - Activity Restrictions/Additional Instructions: Take over the counter Mucinex D or Tylenol Cold and Flu as needed for symptom relief Disposition Disposition: Home, Self Care Discharge Date/Time: 07/30/21 16:18
[2021-07-30 15:24] LABS: Color, Urine Yellow (Yellow); Glucose, Dipstick Normal (Normal); Ketone-Dipstick Negative (Negative); Leukocyte Esterase-Dipstick 500 /ul (Negative); Nitrite-Dipstick Negative (Negative); Occult Blood-Urine Negative /ul (Negative); Protein-Dipstick 15 mg/dl (Negative); Urine Bilirubin Dipstick Negative (Negative); Urine Clarity Sl. Cloudy (Clear); Urine Urobilinogen Normal (Normal); Urine pH 6.5 (5.0 - 8.0)
[2021-07-30 15:45] VITALS: BP 115/65; PULSE 81; RESP 16; O2SAT 94
[2021-07-30 15:59] LABS: Hyaline Cast 0-5 SEEN /lpf (0-5); Squamous Epithelial Cells - UA 0-5 SEEN /hpf (5-10)
[2021-07-30 16:00] LABS: White Blood Cells 10-25 SEEN /hpf (0-5)
[2021-07-30 16:01] LABS: Transitional Epithelial - Ur 0-5 SEEN /hpf (0-5)
[2021-07-30 16:03] LABS: Renal Epithelial Cells 0-5 SEEN /hpf (0-5)
[2021-07-30 16:04] LABS: Bacteria RARE /hpf (None Seen); Red Blood Cells-Urine 0-5 SEEN /hpf (0-5)
== END 2021-07-30 16:18 | disposition home or self-care (01) ==
PROVIDERS: Emergency Provider Emergency Medicine
DX: U07.1 COVID-19 (principal); R55 Syncope and collapse; E78.5 Hyperlipidemia, unspecified; M85.80 Other specified disorders of bone density and structure, unspecified site; F17.210 Nicotine dependence, cigarettes, uncomplicated; K21.9 Gastro-esophageal reflux disease without esophagitis; Z79.899 Other long term (current) drug therapy
CPT/HCPCS: 71045; 80053; 81001; 83690; 84484; 85025; 87426; 93005; 99285; J7030; A4216

== ENCOUNTER → 2022-08-26 | Outpatient (CLI) | payer MEDICARE, SELFPAY ==
[2022-08-26 08:13] LABS: Hematocrit 39.8 % (37-47); Hemoglobin 12.5 g/dL (12.0-15.0); Mean Corp Hgb Conc 31.4 g/dL (32-36); Mean Corpuscular Hgb 29.8 pg (27.0-32.0); Mean Platelet Vol. 10.3 fl (6.2-12.0); Platelet Count 279 K/mm3 (150-450); RBC Distribution Width CV 13.2 % (11.6-14.6); Red Blood Count 4.19 M/mm3 (4.2-5.4); White Blood Count 7.8 K/mm3 (4.4-11.0)
[2022-08-26 08:34] LABS: ALB/GLOB Ratio 0.9 RATIO (0.9-2.4); AST(SGOT) 17 U/L (15-37); Alanine Aminotransfer ALT/SGPT 24 U/L (13-56); Albumin, Serum 3.4 g/dL (3.2-5.0); Alkaline Phosphatase 83 U/L (45-117); Anion Gap 6 (5-15); BUN 17 mg/dL (7-18); Chloride 110 mmol/L (98-107); Cholesterol 160 mg/dL (200); EST Glomerular Filtration Rate 58 mL/min (>60); Est Glom Filt Rate - Afr Amer 71 mL/min (>60); Globulin 3.7 g/dL (2.2-4.2); Glucose 110 mg/dL (74-106); High Density Lipoprotein 62 mg/dL; Potassium 3.9 mmol/L (3.5-5.1); Protein, Total 7.1 g/dL (6.4-8.2); Sodium Level 138 mmol/L (136-145); Triglycerides 149 mg/dL; Very Low Density Lipoprotein 30 mg/dL (5-40)
[2022-08-26 08:35] LABS: Vitamin D,25 Hydroxy 82.7 ng/mL
== END | disposition home or self-care (01) ==
LOC: PAVLAB 07:40
PROVIDERS: Referring Provider Nurse Practitioner Family; Visit Provider Nurse Practitioner Family
DX: E78.5 Hyperlipidemia, unspecified (principal)
CPT/HCPCS: 36415; 80053; 80061; 82306; 85027

== ENCOUNTER → 2024-05-30 | Outpatient (CLI) | payer MEDICARE, MEDICAID, SELFPAY ==
[2024-05-30 13:24] LABS: Absolute Lymphocyte Count 2.89 X10^3/uL (0.83-4.51); Absolute Neutrophil Count 3.5 X10^3/uL (2.0-7.7); Basophil# 0.09 X10^3/uL; Basophil% 1.2 % (0-1); Eosinophil# 0.28 X10^3/uL; Eosinophils% 3.7 % (0-5); Hematocrit 42.8 % (37-47); Hemoglobin 13.5 g/dL (12.0-15.0); Lymphocyte # 2.89 X10^3/ul (0.83-4.51); Lymphocyte % 38.4 % (19-41); Mean Corp Hgb Conc 31.5 g/dL (32-36); Mean Corpuscular Hgb 28.6 pg (27.0-32.0); Mean Corpuscular Volume 90.7 fL (81-99); Mean Platelet Vol. 9.5 fl (6.2-12.0); Monocyte# 0.72 X10^3/uL; Monocyte% 9.6 % (0-10); NRBC Flagged by Analyzer 0 % (0-5); Neutrophil # 3.53 X10^3/uL (2.7-7.7); Neutrophil % 46.8 % (47-70); Platelet Count 353 K/mm3 (150-450); RBC Distribution Width CV 13.8 % (11.6-14.6); RBC Distribution Width SD 46.3 fl (35.1-43.9); Red Blood Count 4.72 M/mm3 (4.2-5.4); White Blood Count 7.5 K/mm3 (4.4-11.0)
[2024-05-30 13:50] LABS: Vitamin B12 559 pg/mL (211-911); Vitamin D,25 Hydroxy 75.4 ng/mL
[2024-05-30 13:58] LABS: ALB/GLOB Ratio 0.9 RATIO (0.9-2.4); AST(SGOT) 19 U/L (15-37); Alanine Aminotransfer ALT/SGPT 19 U/L (13-56); Albumin, Serum 3.7 g/dL (3.2-5.0); Alkaline Phosphatase 81 U/L (45-117); Anion Gap 7 (5-15); BUN 16 mg/dL (7-18); BUN/Creat Ratio 14.3 RATIO (10-20); Calcium,Total 9.7 mg/dL (8.5-10.1); Chloride 107 mmol/L (98-107); Cholesterol 234 mg/dL (200); Creatinine, Serum 1.12 mg/dL (0.55-1.02); EST Glomerular Filtration Rate 51 mL/min (>60); Est Glom Filt Rate - Afr Amer 62 mL/min (>60); Globulin 4.1 g/dL (2.2-4.2); Glucose 101 mg/dL (74-106); High Density Lipoprotein 86 mg/dL; Potassium 4.1 mmol/L (3.5-5.1); Protein, Total 7.8 g/dL (6.4-8.2); Sodium Level 139 mmol/L (136-145); Triglycerides 146 mg/dL; Very Low Density Lipoprotein 29 mg/dL (5-40)
== END | disposition home or self-care (01) ==
LOC: LAB 12:55 → PAVLAB 13:58
PROVIDERS: Referring Provider Nurse Practitioner Family; Visit Provider Nurse Practitioner Family
DX: R41.3 Other amnesia (principal); E78.5 Hyperlipidemia, unspecified; E55.9 Vitamin D deficiency, unspecified
CPT/HCPCS: 36415; 80053; 80061; 82306; 82607; 84443; 85025